=== PATIENT | female | born 1960 | race American Indian/Alaskan Native ===

== ENCOUNTER 2017-05-16 11:58 | Inpatient (IN) | payer MEDICAID, OTHER ==
[2017-05-16 14:46] LABS: Basophils % (Auto) 1.5 % (0.0-1.8); Eosinophils % (Auto) 1.6 % (0.0-4.3); Hematocrit 40.7 % (30.3-42.9); Hemoglobin 13.1 gm/dl (10.1-14.3); Mean Corpuscular HGB Conc 32 % (30-34); Mean Corpuscular Hemoglobin 29 pg (28-32); Mean Corpuscular Volume 92 fl (79-97); Platelet Count 180 K/mm3 (140-440); Red Blood Count 4.44 M/mm3 (3.65-5.03); Red Cell Distribution Width 14.9 % (13.2-15.2); White Blood Count 5.4 K/mm3 (4.5-11.0)
[2017-05-16 15:20] LABS: Anion Gap 17 mmol/L; Blood Urea Nitrogen 16 mg/dL (7-17); Calcium 9.5 mg/dL (8.4-10.2); Carbon Dioxide 28 mmol/L (22-30); Chloride 99.7 mmol/L (98-107); Glucose 110 mg/dL (65-100); Sodium 141 mmol/L (137-145)
--- NOTE | 2017-05-16 20:16 | Emergency Department Report ---
ED Chest Pain HPI - General Chief Complaint: Chest Pain Stated Complaint: DIZZINESS Time Seen by Provider: 05/16/17 20:03 Source: patient Mode of arrival: Ambulatory Limitations: No Limitations - History of Present Illness Initial Comments: 57-year-old female here with complaint of chest pain. Patient is noticing worsening pain over the course last couple weeks. She gets pain and short of breath. She describes the pain as a pressure inside her chest. It does not radiate. She does get diaphoretic with the pain and has to often sit down. She states that she syncopized at home with her family today. Denies fevers chills. She has had some nausea but no vomiting. MD Complaint: chest pain -: week(s) (1) Onset: during rest, during exertion Severity scale (0 -10): 4 Quality: tightness Consistency: intermittent Improves With: rest Worsens With: exertion re: nausea, diaphoresis, dyspnea Other Symptoms: denies: cough, fever, syncope - Related Data Previous Rx's Medication Instructions Recorded Last Taken Type Azithromycin [Zithromax Z-MARIANNE] 250 mg PO DAILY #6 tab 10/21/16 Unknown Rx Fluticasone [Flonase] 1 spray NS QDAY #1 bottle 10/21/16 Unknown Rx guaiFENesin/CODEINE [Robitussin AC] 10 ml PO QHS PRN #70 oral.liqd 10/21/16 Unknown Rx Allergies Allergy/AdvReac Type Severity Reaction Status Date / Time No Known Allergies Allergy Verified 10/21/16 13:19 Heart Score - HEART Score History: Highly suspicious EKG: Non-specific Age: 45-65 Risk factors: 1-2 risk factors Troponin: < normal limit HEART Score: 5 ED Review of Systems ROS: Stated complaint: DIZZINESS Other details as noted in HPI Comment: All other systems reviewed and negative Constitutional: denies: chills, fever Eyes: denies: eye pain, eye discharge, vision change ENT: denies: ear pain, throat pain Respiratory: denies: cough, shortness of breath, wheezing Cardiovascular: denies: chest pain, palpitations Endocrine: no symptoms reported Gastrointestinal: denies: abdominal pain, nausea, diarrhea Genitourinary: denies: urgency, dysuria, discharge Musculoskeletal: denies: back pain, joint swelling, arthralgia Skin: denies: rash, lesions Neurological: denies: headache, weakness, paresthesias Psychiatric: denies: anxiety, depression Hematological/Lymphatic: denies: easy bleeding, easy bruising ED Past Medical Hx - Past Medical History Hx Hypertension: Yes Hx Arthritis: Yes Additional medical history: hypothyroid - Surgical History Additional Surgical History: Tubal Ligation. THYROID SURGERY (FLUID REMOVED) - Family History Family history: no significant - Social History Smoking Status: Never Smoker Substance Use Type: None - Medications Home Medications: Home Medications Medication Instructions Recorded Confirmed Last Taken Type Azithromycin [Zithromax Z-MARIANNE] 250 mg PO DAILY #6 tab 10/21/16 Unknown Rx Fluticasone [Flonase] 1 spray NS QDAY #1 bottle 10/21/16 Unknown Rx guaiFENesin/CODEINE [Robitussin AC] 10 ml PO QHS PRN #70 oral.liqd 10/21/16 Unknown Rx ED Physical Exam - General Limitations: No Limitations General appearance: alert, in no apparent distress - Head Head exam: Present: atraumatic, normocephalic - Eye Eye exam: Present: normal appearance - ENT ENT exam: Present: mucous membranes moist - Neck Neck exam: Present: normal inspection - Respiratory Respiratory exam: Present: normal lung sounds bilaterally. Absent: respiratory distress - Cardiovascular Cardiovascular Exam: Present: regular rate, normal rhythm, systolic murmur. Absent: diastolic murmur, rubs, gallop - GI/Abdominal GI/Abdominal exam: Present: soft, normal bowel sounds. Absent: distended, tenderness, guarding - Extremities Exam Extremities exam: Present: normal inspection - Back Exam Back exam: Present: normal inspection - Neurological Exam Neurological exam: Present: alert, oriented X3 - Psychiatric Psychiatric exam: Present: normal affect, normal mood - Skin Skin exam: Present: warm, dry, intact, normal color. Absent: rash ED Course Vital Signs 05/16/17 05/16/17 05/16/17 13:30 20:55 20:56 Temperature 98.0 F 97.8 F Pulse Rate 73 68 Respiratory 18 18 18 Rate Blood Pressure 160/85 Blood Pressure 168/92 [Right] O2 Sat by Pulse 100 97 Oximetry ED Medical Decision Making - Lab Data Result diagrams: 05/16/17 14:31 05/16/17 14:31 Laboratory Results - last 24 hr 05/16/17 05/16/17 05/16/17 14:31 14:31 16:19 WBC 5.4 RBC 4.44 Hgb 13.1 Hct 40.7 MCV 92 MCH 29 MCHC 32 RDW 14.9 Plt Count 180 Lymph % (Auto) 32.8 [place] % (Auto) 10.0 H Eos % (Auto) 1.6 Baso % (Auto) 1.5 Lymph # 1.8 [place] # 0.5 Eos # 0.1 Baso # 0.1 Seg Neutrophils % 54.1 Seg Neutrophils # 2.9 Sodium 141 Potassium 4.0 Chloride 99.7 Carbon Dioxide 28 Anion Gap 17 BUN 16 Creatinine 0.8 Estimated GFR > 60 BUN/Creatinine Ratio 20.00 Glucose 110 H Calcium 9.5 Troponin T < 0.010 < 0.010 - EKG Data -: EKG Interpreted by Me - EKG Data 05/16/17 20:21 Sinus 68 normal axis and prolonged QTC of 474 diffuse T-wave inversions in leads 2 and aVF and V3 V4 V5 and V6 - Medical Decision Making 37-year-old female here with complaint of chest pain intermittent with exertion. It is worse with exertion and she gets short of breath with it. Given her story and her abnormal EKG, although her troponins are negative she will need to be evaluated further with likely a stress test and possibly an echo given her murmur. Plan did discuss case with hospitalist will admit. Discussed with hospitalist. Portions of this chart were dictated with dictation software. There may be dictation errors contained within this note. Critical care attestation.: If time is entered above; I have spent that time in minutes in the direct care of this critically ill patient, excluding procedure time. ED Disposition Clinical Impression: Chest pain Disposition: -09 OP ADMIT IP TO THIS HOSP Is pt being admited?: Yes Condition: Stable Instructions: Chest Pain (ED) Referrals: PRIMARY CARE, [Primary Care Provider] - 3-5 Days
--- NOTE | 2017-05-16 22:58 | History and Physical Report ---
History of Present Illness Date of examination: 05/16/17 Medications and Allergies Allergies Allergy/AdvReac Type Severity Reaction Status Date / Time No Known Allergies Allergy Verified 10/21/16 13:19 Home Medications Medication Instructions Recorded Confirmed Last Taken Type No Known Home Medications [No 05/16/17 05/16/17 Unknown History Reported Home Medications] Exam - Constitutional Vitals: Temp Pulse Resp BP Pulse Ox 97.8 F 65 25 H 154/82 99 05/16/17 20:55 05/16/17 21:00 05/16/17 21:00 05/16/17 21:00 05/16/17 21:00 Results - Labs CBC & Chem 7: 05/16/17 14:31 05/16/17 14:31 Labs: Abnormal lab results 05/16/17 05/16/17 Range/Units 14:31 14:31 [place] % (Auto) 10.0 H (0.0-7.3) % Glucose 110 H (65-100) mg/dL
[2017-05-17] MEDS ORDERED: SODIUM CHLORIDE FLUSH SYRINGE 10 ML IV PRN (01:13)
[2017-05-17] MEDS ORDERED: PERCOCET 5/325 PO PRN (01:13)
[2017-05-17] MEDS ORDERED: TYLENOL PO PRN (01:13)
[2017-05-17] MEDS ORDERED: MILK OF MAGNESIA PO PRN (01:13)
[2017-05-17] MEDS ORDERED: DULCOLAX PR PRN (01:13)
[2017-05-17] MEDS ORDERED: ZOFRAN IV PRN (01:13)
--- NOTE | 2017-05-17 08:26 | XRay Report ---
CHEST ONE VIEW INDICATION: Chest pain. COMPARISON: 12/12/2009. FINDINGS: Portable, single, frontal chest radiograph now suggests borderline cardiomegaly, slightly more pronounced since the prior exam. Mild peribronchial thickening centrally also now seen. Otherwise clear lungs. Multilevel thoracic spondylosis. Right hemidiaphragm minimally elevated. CONCLUSION: Mild peribronchial thickening and borderline cardiomegaly. Thank you for the opportunity to participate in this patient's care.
--- NOTE | 2017-05-17 08:28 | Admit Criteria Form ---
Admission Criteria Documentation: CARDIOLOGY GRG Clinical Indications for Admission to Inpatient Care ([place]/check or initial the applicable condition/criteria) Hospital admission is needed for appropriate care of the patient because of ANY ONE of the following: [ ] I. Hemodynamic instability as indicated by ALL of the following (1)(2)(3) (4)(5)(6)(7)(8)(9)(10) [ ]a) Vital sign abnormality not readily corrected by appropriate treatment with 12-24 hours for ANY ONE: [ ]i) Hypotension that persists despite appropriate treatment (eg, volume repletion) [ ]ii) Tachycardiathat persists despite appropriate tx ( e.g., analgesia, fluids, sedation as indicated [ ]iii) Orthostatic vital sign changes that persists despite appropriate treatment (eg, volume repletion) [ ]b) Vital sign abnormailty that is severe indicated by ANY ONE of the following: [ ]i) Inadequate perfusion indicated by ANY ONE of the following: [ ] 1) Lactic acidosis (> 2 mmol/L) [ ] 2) New abnormal capillary refill (> 3 seconds) [ ] 3) Reduced urine output [ ] 4) New altered mental status [ ] 5) Myocardial Ischemia [ ] 6) Other metabolic acidosis (arterial pH <7.35 ) not otherwise explained. [ ]ii) Mean arterial pressure[A] less than 60 mm Hg [ ]iii) Mean arterial pressure[A] less than 70 mm Hg after 30 minutes of appropriate treatment (eg, fluid resuscitation) [ ]iv) Sustained heart rate greater than 120 beats per minute in adult or child 6 years or older[B] [ ]v) IV inotropic or vasopressor medication required to maintain adequate blood pressure or perfusion [ ] II. Severe heart failure as indicated by ANY ONE of the following(17)(18) [ ]a) Respiratory distress [ ]b) Hypotension [ ]c) Debilitating anasarca refractory to therapy (eg, tissue breakdown with infection)[C](19) [ ]d) Cardiac arrhythmias of immediate concern [ ]e) Myocardial ischemia [ ] III. Cardiac arrhythmias or findings of immediate concern indicated by ANY ONE of the following (21)(22): [ ] a) Heart rhythms that are inherently dangerous or unstable indicated by ANY ONE of the following (23)(24)(25): [ ] i) Resuscitated ventricular fibrillation or cardiac arrest [ ] ii) Ventricular escape rhythm [ ] iii) Sustained ventricular tachycardia (30 seconds or more of ventricular rhythm at greater than 100 beats per minute) [ ] iv) Nonsustained ventricular tachycardia and ANY ONE of the following: [ ] 1) Suspected cardiac ischemia as cause or consequence of ventricular tachycardia [ ] 2) Acute myocarditis [ ] b) Unstable cardiac conduction defects indicated by ANY ONE of the following(25)(26)(27) [ ] i) Type II second-degree atrioventricular block [ ]ii) Third-degree atrioventricular block [ ]iii) New-onset left bundle branch block with suspected myocardial ischemia [ ]c) Any heart rhythm and ANY ONE of the following (23)(24)(28)(29) (30) [ ] i) Continuous long-term ECG monitoring needed (e.g., initiation of drug requiring monitoring for more than 24 hours) [ ] ii) Patient has automatic implanted cardioverter defibrillator that is repeatedly firing, malfunctioning, or in need of immediate adjustment of settings beyond the scope of ambulatory or observation care [ ]d) Heart rhythms of concern due to ANY ONE of the following: [ ] i) Hypotension [ ] ii) Respiratory distress [ ] iii) Association with other significant symptoms (e.g., bradycardia with syncope or ongoing dizziness, supraventricular tachycardia with chest pain (28)(29)(31) [ ] IV. Monitoring for cardiac contusion beyond the scope of observation care needed [A](32)(33)(34) [ ] V. Surgical or device complication (e.g., valve replacement complication , ICD disfunction or pacemaker dysfunction) (49)(50)(51)(52)(53)(54) [ ] . Inpatient palliative care needed. [F](51)(52) Also use Inpatient Palliative Care Criteria [ ] VII. Nonbacterial thrombotic (marantic) endocarditis(43)(44)(55)(56)(57) [X] VIII. Cardiology condition, symptom, or finding for which emergency and observation care has failed or are not considered appropriate. [ ] IX. Acute valvular disease requiring inpatient as indicated by ANY ONE of the following (40)(41) [ ]a) Acute valvular regurgitation (42) [ ]b) Noninfectious valvulitis (43)(44) [ ]c) Obstructive valve thrombosis (45)(46) [ ]d) Paravalvular leak(47)(48) [ ]e) Other significant valvular disorder remaining after emergency or observation level of care (as appropriate) [ ]X. Pericardial disease requiring inpatient treatment as indicated by ANY ONE of the following (35)(36)(37)(38) [ ]a) Suspected tamponade [ ]b) Hemopericardium [ ]c) Other significant pericardial disorder remaining after emergency or observation level of care (as appropriate)(39) [ ] XI. Cardiac ischemia beyond scope of emergency and observation care. [ ] XII. Cyanotic heart disease requiring inpatient care as indicated by 1 or more of the following(58)(59)(60): [ ]a) Acute onset of hypoxemia [ ]b) Exacerbation [ ] XIII. Hypertension requiring inpatient treatment as indicated by ANYONE of the following(11)(12)(13)(14): [ ]a) Severe hypertension (SBP greater than 180 mm Hg or DBP greater than 110 mm Hg, or greater than the 95th percentile for age, gender, and height in pediatric patients) that cannot be controlled (eg, to SBP less than 160 mm Hg and DBP less than 100 mm Hg) by emergency department or observation care treatment(15) [ ]b) Acute end organ damage secondary to hypertension (SBP greater than 140 mm Hg or DBP greater than 90 mm Hg) as indicated by ANYONE of the following: [ ] i) Hypertensive encephalopathy (eg, Altered mental status)(16) [ ] ii) Cerebral infarction [ ] iii) Intracranial hemorrhage [ ] iv) Myocardial ischemia or infarction [ ] v) Heart failure (eg, pulmonary edema) [ ] vi) Aortic dissection [ ] vii) Increased creatinine (new) with reduction of more than 50% in estimated glomerular filtration rate from baseline [ ] viii) Papilledema [ ] ix) Retinal hemorrhage [ ] x) Microangiopathic hemolytic anemia [ ] xi) Seizure [ ] xii) Other significant finding secondary to hypertension [ ] XIV. Complications of transplanted heart indicated by ANY ONE of the following(61): [ ]a) Acute graft rejection requiring inpatient management (eg, intravenous imunosuppression)(62)(63) [ ]b) Acute graft heart failure indicated by ANY ONE of the following(64): [ ] i) Hemodynamic instability [ ] ii) Cardiac arrhythmias of immediate concern [ ] iii) Pulmonary edema that is very severe (eg, mechanical ventilation needed, imminent or likely, need for 100% oxygen to keep oxygen saturation above 90%) [ ] iv) Pulmonary edema that is persistent as indicated by ALL of the following: [ ] 1) New need for oxygen therapy to keep oxygen saturation above 90 % (or increased FiO2 need from baseline) [ ] 2) Has not improved sufficiently with emergency department or observation care IV diuretics or other heart failure treatments[E]. [ ] iv) Altered mental status that is severe or persistent [ ] iv) Increased creatinine (new on laboratory test) with reduction of more than 50% in estimated glomerular filtration rate from baseline [ ] iv) Progressively (ongoing) rising creatinine (known from past laboratory test) with reduction of more than 25% in estimated glomerular filtration rate from baseline [ ] iv) Acute renal failure [ ] iv) Acute peripheral ischemia (eg, examination shows pulseless, cool, mottled, or cyanotic extremity) [ ] iv) Pulmonary artery catheter monitoring needed [ ] iv) Other sign or symptom of heart failure requiring inpatient treatment (ie, too severe or not responsive to outpatient and observation care treatment) [ ]c) Infection requiring inpatient management (eg, Hemodynamic instability, need for intravenous antimicrobial treatment)(66)(67)(68)(69)(70) [ ]d) Cardiac allograft vasculopathy requiring inpatient management (eg evidence of cardiacischemia)(71) [ ]e) Other complication of transplanted heart (eg, stroke, severe pulmonary hypertension, severe valvular dysfunction) requiring inpatient management(72) The original [employer] content created by [employer] has been revised. The portions of the content which have been revised are identified through the use of italic text or in bold, and [facility] has neither reviewed nor approved the modified material. All other unmodified content is copyright [facility] Please see references footnoted in the original [facility] edition 2017 Admission Criteria Met: Yes
[2017-05-17] MEDS ORDERED: LEXISCAN IV ONE ×2 (08:50→08:51)
[2017-05-17 09:46] VITALS: BP 128/69
[2017-05-17] MEDS ORDERED: LOVENOX SUB-Q SCH (10:00)
--- NOTE | 2017-05-17 13:45 | Discharge Summary ---
Providers - Providers Date of Admission: 05/16/17 22:58 Date of discharge: 05/17/17 Attending physician: CECY CLIFTON 05/17/17 Consult to Cardiac Rehabilitation [CONS] Routine Reason For Exam: Phase I Primary care physician: [facility] [facility]IST Hospitalization Reason for admission: chest pain Condition: Stable Pertinent studies: CXR Stress test Hospital course: Chest pain - likely secondary to GERD ? HTN - not on any medication and BP within normal limits S/p thyroid surgery Obesity Disposition: DC-01 TO HOME OR SELFCARE Time spent for discharge: 35 min Core Measure Documentation - Palliative Care Palliative Care/ Comfort Measures: Not Applicable - Core Measures Any of the following diagnoses?: none Exam - Constitutional Vitals: Temp Pulse Resp BP Pulse Ox 98.1 F 90 30 H 128/69 96 05/16/17 23:59 05/17/17 09:15 05/17/17 05:00 05/17/17 09:15 05/17/17 05:00 Plan Activity: advance as tolerated Diet: low cholesterol, low salt Follow up with: [facility] [Outside] - 14 Days PRIMARY CAREMD [Primary Care Provider] - 3-5 Days YOSVANY DA SILVA MD [Staff Physician] - 14 Days (? ECHO (cardiomegaly)) Prescriptions: Antacid [Alum-Mag Hydrox-Simeth [id number]/5Ml Susp] 15 ml PO Q6HR PRN #30 udc PRN Reason: Indigestion Famotidine [Pepcid] 20 mg PO BID #60 tablet
--- NOTE | 2017-05-18 01:19 | Treadmill Report ---
PROCEDURE: Nuclear perfusion study done. REASON FOR STUDY: Chest pain. READING PHYSICIAN: Doc Wilkes MD IMAGING PROTOCOL: The patient received 10 mCi of Technetium 99m Tetrofosmin for resting image and 28 mCi of Technetium 99m Tetrofosmin for stress imaging. The imaging for the whole procedure was completed 30-90 minutes following the initial injection of Technetium 99m tetrofosmin. The SPECT imaging in the 180 degree arc was performed in the right anterior oblique projection. Computerized reconstruction of the images was performed for analysis. IMAGING RESULTS: Normal cavity size from stress to rest. Normal distribution of radionuclide in the septal, apical, lateral, inferior and anterior, but mild fixed mid anterior apical defect seen in both stress and rest with gated SPECT, EF of 50% with no wall motion abnormalities. The patient infused, Lexiscan with no EKG changes. SUMMARY: 1. Negative Lexiscan EKG. 2. The patient has no significant stress ischemia. 3. There is a small mild fixed anterior apical defects seen both stress and rest to breast attenuation with EF around 50%, no wall motion abnormality noted. JOB# [id number] TERRY/FRANCESCO
== END 2017-05-17 14:15 | disposition home or self-care (01) | DRG 392 ==
LOC: ED 11:58 → 4A 22:58
PROVIDERS: ADMIT Internal Medicine; ATTEND Internal Medicine
DX: K21.9 Gastro-esophageal reflux disease without esophagitis (principal); I10 Essential (primary) hypertension; M19.90 Unspecified osteoarthritis, unspecified site; E66.9 Obesity, unspecified; Z68.37 Body mass index [BMI] 37.0-37.9, adult; Z98.51 Tubal ligation status
CPT/HCPCS: 36415; 71010; 78452; 80048; 84443; 84484; 85025; 85379; 93005; 93010; 93017; A9502; J1650; J2785

== ENCOUNTER 2017-12-09 05:37 | Emergency (ER) | payer MEDICARE ==
--- NOTE | 2017-12-09 06:33 | XRay Report ---
FINAL REPORT EXAM: XR NECK SOFT TISSUE HISTORY: pt believes something is stuck in throat COMPARISONS: None. FINDINGS: AP and lateral views of the neck Tracheal air column is within normal limits. No hypo pharyngeal ballooning. Prevertebral soft tissues are within normal limits. Intact cervical spine with scattered endplate spondylosis. Incomplete evaluation of the lungs is unremarkable. IMPRESSION: No obvious abnormality involving upper airway or soft tissues of the neck. Consider follow-up CT with contrast as warranted.
--- NOTE | 2017-12-09 09:53 | Emergency Department Report ---
ED General Adult HPI - General Chief complaint: Skin/Abscess/Foreign Body Stated complaint: FB THROAT Time Seen by Provider: 12/09/17 09:43 Source: patient Mode of arrival: Ambulatory Limitations: No Limitations - History of Present Illness Initial comments: This is a 57-year-old female has intermittently felt like she had a foreign body in the right side of her throat. At this time it is not bothering her. She states it felt like a piece of popcorn. She has no trouble breathing and has been swallowing fine. He denies fever or chills. -: days(s) Location: mouth Quality: other Associated Symptoms: denies other symptoms (foreign body sensation) - Related Data Previous Rx's Medication Instructions Recorded Last Taken Type Antacid [Alum-Mag Hydrox-Simeth 15 ml PO Q6HR PRN #30 udc 05/17/17 Unknown Rx [id number]/5Ml Susp] Famotidine [Pepcid] 20 mg PO BID #60 tablet 05/17/17 Unknown Rx Allergies Allergy/AdvReac Type Severity Reaction Status Date / Time No Known Allergies Allergy Verified 10/21/16 13:19 ED Review of Systems ROS: Stated complaint: FB THROAT Other details as noted in HPI Constitutional: denies: chills, fever Eyes: denies: eye pain, eye discharge, vision change ENT: denies: ear pain, throat pain Respiratory: denies: cough, shortness of breath, wheezing Cardiovascular: denies: chest pain, palpitations Endocrine: no symptoms reported Gastrointestinal: denies: abdominal pain, nausea, diarrhea Genitourinary: denies: urgency, dysuria, discharge Musculoskeletal: denies: back pain, joint swelling, arthralgia Skin: denies: rash, lesions Neurological: denies: headache, weakness, paresthesias Psychiatric: denies: anxiety, depression Hematological/Lymphatic: denies: easy bleeding, easy bruising ED Past Medical Hx - Past Medical History Previous Medical History?: Yes Hx Hypertension: Yes Hx Congestive Heart Failure: No Hx Diabetes: No Hx Arthritis: Yes (B/L knees) Hx Asthma: No Hx COPD: No Hx HIV: No Additional medical history: hypothyroid - Surgical History Past Surgical History?: Yes Additional Surgical History: Tubal Ligation. THYROID SURGERY (FLUID REMOVED) - Social History Smoking Status: Former Smoker Substance Use Type: None - Medications Home Medications: Home Medications Medication Instructions Recorded Confirmed Last Taken Type Antacid [Alum-Mag Hydrox-Simeth 15 ml PO Q6HR PRN #30 udc 05/17/17 Unknown Rx [id number]/5Ml Susp] Famotidine [Pepcid] 20 mg PO BID #60 tablet 05/17/17 Unknown Rx ED Physical Exam - General Limitations: No Limitations General appearance: alert, in no apparent distress - Head Head exam: Present: atraumatic, normocephalic - Eye Eye exam: Present: normal appearance - ENT ENT exam: Present: normal orophraynx, mucous membranes moist - Neck Neck exam: Present: normal inspection, full ROM. Absent: tenderness, meningismus, lymphadenopathy, thyromegaly - Respiratory Respiratory exam: Present: normal lung sounds bilaterally. Absent: respiratory distress - Cardiovascular Cardiovascular Exam: Present: regular rate, normal rhythm. Absent: systolic murmur, diastolic murmur, rubs, gallop - GI/Abdominal GI/Abdominal exam: Present: soft, normal bowel sounds. Absent: distended, tenderness, guarding, rebound, rigid - Extremities Exam Extremities exam: Present: normal inspection - Back Exam Back exam: Present: normal inspection - Neurological Exam Neurological exam: Present: alert, oriented X3, CN II-XII intact. Absent: motor sensory deficit - Psychiatric Psychiatric exam: Present: normal affect, normal mood - Skin Skin exam: Present: warm, dry, intact, normal color. Absent: rash ED Course Vital Signs 12/09/17 12/09/17 05:53 08:55 Temperature 97.7 F Pulse Rate 62 61 Respiratory 18 18 Rate Blood Pressure 146/86 Blood Pressure 149/80 [Left] O2 Sat by Pulse 91 100 Oximetry - Reevaluation(s) Reevaluation #1: Patient referred to ENT for follow-up. She was told that laryngoscopy may be recommended. 12/09/17 09:52 Critical care attestation.: If time is entered above; I have spent that time in minutes in the direct care of this critically ill patient, excluding procedure time. ED Disposition Clinical Impression: Foreign body sensation in throat Disposition: DC-01 TO HOME OR SELFCARE Is pt being admited?: No Does the pt Need Aspirin: No Condition: Stable Instructions: Foreign Body in Pharynx (ED) Referrals: LUCAS KC MD [Staff Physician] - 2-3 Days Time of Disposition: 09:53
[2017-12-09] MEDS ORDERED: LIDOCAINE VISCOUS 2% PO ONE (09:54)
[2017-12-09] MEDS ORDERED: ALUM-MAG HYDROX-SIMETH 200-200-20MG/5ML PO ONE (09:54)
[2017-12-09 10:08] VITALS: BP 166/81
== END 2017-12-09 10:07 | disposition home or self-care (01) ==
LOC: ED 05:37
DX: T17.208A Unspecified foreign body in pharynx causing other injury, initial encounter (principal); I10 Essential (primary) hypertension; M19.90 Unspecified osteoarthritis, unspecified site; Z87.891 Personal history of nicotine dependence; X58.XXXA Exposure to other specified factors, initial encounter; Y93.89 Activity, other specified; Y92.89 Other specified places as the place of occurrence of the external cause; Y99.8 Other external cause status
CPT/HCPCS: 70360; 99283

== ENCOUNTER 2018-01-30 04:22 | Emergency (ER) | payer MEDICARE ==
[2018-01-30 04:30] VITALS: BP 154/92
--- NOTE | 2018-01-30 06:13 | Emergency Department Report ---
Chief Complaint: Urogenital-Female Stated Complaint: SWEATING Time Seen by Provider: 01/30/18 06:09 - HPI History of Present Illness: 58-year-old female comes in with complaint of constant sweating and hot flashes 1 year. Patient denies any fever no chills no nausea no vomiting. She states that she had tried [id number] estrogen that have helped with the night sweats but not doing the day. Patient has no other past medical history besides knee pain. Patient currently takes no medications and has no known drug allergies. - ROS Review of Systems: Patient admits to night sweats hot flashes during the day no fever no chills and nausea no vomiting she's had a tubal ligation - Exam Vital Signs: Vital Signs 01/30/18 01/30/18 04:24 05:27 Temperature 97.6 F 97.6 F Pulse Rate 70 71 Respiratory 18 18 Rate Blood Pressure 154/92 154/92 O2 Sat by Pulse 98 98 Oximetry Physical Exam: Patient's alert and oriented 3 she is no acute distress she is warm dry. MSE screening note: Focused history and physical exam performed. Due to findings the following was ordered: Patient's been evaluated by this provider fast track discussed the patient is considered a nonemergency screening exam. Discussed the patient she would best be evaluated by [facility] provider or primary care provider. I discussed the patient I will list few for her to follow up. She verbalizes understanding ED Disposition for MSE Condition: Stable Referrals: [facility] [Provider Group] - 3-5 Days [facility] [place] [Provider Group] - 3-5 Days [facility] [Provider Group] - 3-5 Days [facility] [Provider Group] - 3-5 Days
== END 2018-01-30 06:14 | disposition home or self-care (01) ==
LOC: ED 04:22
DX: R61 Generalized hyperhidrosis (principal)
CPT/HCPCS: 99281

== ENCOUNTER 2018-05-31 08:52 | Emergency (ER) | payer MEDICAID ==
--- NOTE | 2018-05-31 09:58 | Emergency Department Report ---
Chief Complaint: Extremity Injury, Lower Stated Complaint: KNEE PAIN Time Seen by Provider: 05/31/18 09:19 - HPI History of Present Illness: Patient is a 58-year-old [place] female who has a past history of arthritis in her bilateral knees S3 use. Patient states she is been out of her arthritis Ms. Ferrer prescribed andfacility. Patient is here for medication control. Patient states she went to assess at medical clinic but was unable to afford the co-pay. Patient denies any trauma states the pain is 8 out of 10 in severity. Patient states that she has not had a fever nausea vomiting diarrhea at this time. - ROS Review of Systems: All other systems are reviewed and are negative - Exam Vital Signs: Vital Signs 05/31/18 09:06 Temperature 97.7 F Pulse Rate 69 Respiratory 18 Rate Blood Pressure 153/56 O2 Sat by Pulse 96 Oximetry Physical Exam: Focused physical exam patient has bilateral knee tenderness with no swelling or induration. Patient does have full range of motion in bilateral knees MSE screening note: Focused history and physical exam performed. Due to findings the following was ordered: ED Medical Decision Making - Medical Decision Making Patient is a now medical emergency at this time. I did discuss the patient's options with her. Patient does not have Medicaid part B does not have coverage for emergency visits. I was concerned the patient will receive substantial bill if treated here in emergency department. Patient has been screened out for having a medical emergency. Patient was given advice to take Motrin 800 mg every 6 hours [id number]. Patient also given advice as far as rice therapy. Patient will be discharged home. ED Disposition for MSE Clinical Impression: Arthralgia of knee Disposition: MED SCREENING EXAM-LEFT Is pt being admited?: No Does the pt Need Aspirin: No Condition: Stable Instructions: Arthralgia (ED), RICE Therapy (ED) Additional Instructions: Please take Motrin 600 mg [id number] every 6 hours for pain and inflammation. Also please see instructions on rice therapy Time of Disposition: 09:58
[2018-05-31 10:10] VITALS: BP 128/77
== END 2018-05-31 10:08 | disposition left against medical advice (07) ==
LOC: ED 08:52
DX: M25.561 Pain in right knee (principal); M25.562 Pain in left knee
CPT/HCPCS: 99282

== ENCOUNTER 2018-08-25 21:37 | Emergency (ER) | payer MEDICAID ==
--- NOTE | 2018-08-25 21:55 | Cat Scan Report ---
FINAL REPORT EXAM: CT HEAD/BRAIN WO CON HISTORY: neuro deficits < 6hrs or sx present upon awakening COMPARISON: None available. TECHNIQUE: Axial images obtained skull base through vertex. FINDINGS: No acute intracranial hemorrhage, midline shift or pathologic extra axial fluid collection. Ventricle s and cisterns are normal in size and configuration for the patient's age. Ashraf-white differentiation preserved. Calvarium grossly intact. Ocular globes are grossly unremarkable. No hyperdense MCA sign. No loss of the subinsular cortex. Remote appearing bilateral nasal bone fractures. Visualized para-nasal sinuses and mastoid air cells are clear. IMPRESSION: No grossly acute intracranial abnormality. No evidence of acute transcortical infarct or intracranial hemorrhage by CT at this time. If clinical concern for acute intracranial process remains, MRI would be suggested for further evaluation.
--- NOTE | 2018-08-25 22:05 | Emergency Department Report ---
HPI - General Chief Complaint: Neuro Symptoms/Deficit Time Seen by Provider: 08/25/18 21:55 - HPI HPI: Room 1 The patient is a 58-year-old female presenting with a chief complaint of left- sided weakness. Per EMS at approximately 20:30 the patient developed drooling and choking on her food, slurred speech and left-sided weakness. The patient states she got overheated and felt lightheaded. Location: [facility] Duration: [See above] Quality: [See above] Severity: [See above] Modifying factors: [see above] Context: [see above] Mode of transportation: [not driving] ED Past Medical Hx - Past Medical History Hx Hypertension: Yes (not on any meds) Hx Arthritis: Yes (B/L knees) Additional medical history: hypothyroid - Surgical History Additional Surgical History: Tubal Ligation. THYROID SURGERY (FLUID REMOVED) - Family History Family history: no significant - Social History Smoking Status: Never Smoker Substance Use Type: None - Medications Home Medications: Home Medications Medication Instructions Recorded Confirmed Last Taken Type Antacid [Alum-Mag Hydrox-Simeth 15 ml PO Q6HR PRN #30 udc 05/17/17 Unknown Rx [id number]/[id number] Susp] Famotidine [Pepcid] 20 mg PO BID #60 tablet 05/17/17 Unknown Rx Carbamide Peroxide 6.5% [Ear Wax 1 - 2 drops OT TID #1 bottle 08/24/18 Unknown Rx Drops] Naproxen [Naprosyn] 500 mg PO BID #20 tablet 08/24/18 Unknown Rx ED Review of Systems ROS: Stated complaint: POSS CVA Other details as noted in HPI Constitutional: no symptoms reported Eyes: denies: eye pain ENT: denies: throat pain Respiratory: no symptoms reported Cardiovascular: denies: chest pain Endocrine: no symptoms reported Gastrointestinal: denies: abdominal pain Musculoskeletal: denies: back pain Neurological: weakness Physical Exam - Physical Exam Vital Signs: Vital Signs 08/25/18 21:51 Temperature 97.7 F Pulse Rate 69 Respiratory 33 H Rate Blood Pressure 125/86 O2 Sat by Pulse 98 Oximetry Physical Exam: GENERAL: The patient is well-developed well-nourished female lying on stretcher with rightward gaze. [] HEENT: Normocephalic. Atraumatic. The patient has a rightward gaze NECK: Supple. Trachea midline CHEST/LUNGS: Clear to auscultation. There is no respiratory distress noted. HEART/CARDIOVASCULAR: Regular. There is no tachycardia. There is no gallop rub or murmur. ABDOMEN: Abdomen is soft, nontender. Patient has normal bowel sounds. There is no abdominal distention. SKIN: There is no rash. There is no edema. There is no diaphoresis. NEURO: The patient is awake, alert, and oriented. The patient is cooperative. The patient has a dense left hemiparesis with left-sided neglect. The patient has left facial droop/asymmetric smile and does not look towards the left during EOM evaluation. The patient has slightly slurred speech. MUSCULOSKELETAL: There is no evidence of acute injury. NIHSS= 17 LOC a. Alert= 0 Not alert but arousable to minor stimuli=1 Not alert requires repeated or strong stimuli to move= 2 Responds only reflex motor or unresponsive=3 b. asks month and age answers both correctly= 0 answers one correctly= 1 answers neither correctly= 2 Best Gaze normal= 0 abnormal in one or both but forced deviation or total paresis absent= 1 (+)forced deviation or total gaze paresis= 2 Visual no visual loss= 0 partial hemianopia= 1 complete hemianopia= 2 bilateral hemianopia= 3 Facial Palsy normal= 0 minor paralysis= 1 (+)partial paralysis= 2 complete paralysis= 3 Motor Arm no drift= 0 drift before 10 secs but doesnt hit bed= 1 some effort against gravity= 2 no effort against gravity= 3 (+)no movement= 4 Motor leg no drift= 0 drift before 5 secs but doesnt hit bed= 1 drifts to bed before 5 secs= 2 no effort against gravity= 3 (+)no movement= 4 Limb ataxia absent=0 present in one limb= 1 present in two limbs= 2 Sensory normal= 0 mild sensory loss= 1 (+)severe (unaware of being touched)= 2 Best language mild/some loss of fluency= 1 severe= 2 mute= 3 Dysarthria normal= 0 (+)slurs some words= 1 severe/unintelligible= 2 Extinction and Inattention no abnormality= 0 visual, tactile, auditory or personal inattention= 1 (+)profound (doesnt recognize own hand or orients to only one side= 2 ED Course Vital Signs 08/25/18 21:51 Temperature 97.7 F Pulse Rate 69 Respiratory 33 H Rate Blood Pressure 125/86 O2 Sat by Pulse 98 Oximetry - Reevaluation(s) Reevaluation #1: 08/25/18 23:57 Patient has improved on exam. Patient now able to bend left lower extremity at knee and hip. Patient able to raise left upper extremity above his head but the left aircraft mechanic electrical and radio is 0+/5+. Patient continues to have a rightward gaze. - Consultations Consultation #1: 08/25/18 22:01 Tele-neurology paged 08/25/18 22:[address] Bishop- will eval 08/25/18 22:28 Case d/w Dr Bishop- recommends administering tPA now Consultation #2: 08/25/18 23:52 Telemetry neurology paged 08/25/18 23:[address] Clay- patient should be transferred to [place]. Will call and discuss with team and [place] to arrange acceptance. Consultation #3: 08/26/18 00:27 Case discussed with [facility] neurologist Dr. Rios- full except patient in transfer to [facility] ED- recommends transportation by flight. Can begin to arrange transport now and transfer line will call back ED Medical Decision Making - Lab Data Result diagrams: 08/25/18 21:57 08/25/18 21:57 Laboratory Tests 08/25/18 08/25/18 08/25/18 21:57 21:57 21:57 WBC 6.9 RBC 3.92 Hgb 11.7 Hct 36.3 MCV 93 MCH 30 MCHC 32 RDW 15.9 H Plt Count 224 Lymph % (Auto) 29.9 Mcintosh % (Auto) 10.2 H Eos % (Auto) 1.0 Baso % (Auto) 0.6 Lymph # 2.1 Mcintosh # 0.7 Eos # 0.1 Baso # 0.0 Seg Neutrophils % 58.3 Seg Neutrophils # 4.0 PT 14.3 INR 1.07 APTT 24.3 Thrombin Time Sodium 142 Potassium 3.9 Chloride 103.6 Carbon Dioxide 25 Anion Gap 17 BUN 22 H Creatinine 1.1 Estimated GFR > 60 BUN/Creatinine Ratio 20 Glucose 130 H Calcium 8.7 Troponin T < 0.010 08/25/18 21:57 WBC RBC Hgb Hct MCV MCH MCHC RDW Plt Count Lymph % (Auto) Mcintosh % (Auto) Eos % (Auto) Baso % (Auto) Lymph # Mcintosh # Eos # Baso # Seg Neutrophils % Seg Neutrophils # PT INR APTT Thrombin Time 15.1 Sodium Potassium Chloride Carbon Dioxide Anion Gap BUN Creatinine Estimated GFR BUN/Creatinine Ratio Glucose Calcium Troponin T - EKG Data -: EKG Interpreted by Me EKG shows normal: sinus rhythm Rate: normal - EKG Data When compared to previous EKG there are: previous EKG unavailable Interpretation: nonspecific ST-T wave fabi (T-wave inversions in leads V5, V6) - Radiology Data Radiology results: report reviewed (CT head, CTA brain, CTA neck), image reviewed (CT head, CTA brain, CTA neck) [facility] [address] [place] [address] Cat Scan Report Signed Patient: JUANY GUY MR#: [id number] : 1960 Acct:[id number] Age/Sex: 58 / F ADM Date: 08/25/18 Loc: ED Attending Dr: Ordering Physician: SHAYLA NARAYANAN MD Date of Service: 08/25/18 Procedure(s): CT head/brain wo con Accession Number(s): [id number] cc: SHAYLA NARAYANAN MD FINAL REPORT EXAM: CT HEAD/BRAIN WO CON HISTORY: neuro deficits lt; 6hrs or sx present upon awakening COMPARISON: None available. TECHNIQUE: Axial images obtained skull base through vertex. FINDINGS: No acute intracranial hemorrhage, midline shift or pathologic extra axial fluid collection. Ventricles and cisterns are normal in size and configuration for the patient's age. Ashraf-white differentiation preserved. Calvarium grossly intact. Ocular globes are grossly unremarkable. No hyperdense MCA sign. No loss of the subinsular cortex. Remote appearing bilateral nasal bone fractures. Visualized para-nasal sinuses and mastoid air cells are clear. IMPRESSION: No grossly acute intracranial abnormality. No evidence of acute transcortical infarct or intracranial hemorrhage by CT at this time. If clinical concern for acute intracranial process remains, MRI would be suggested for further evaluation. Transcribed By: LMA Dictated By: MARLENE GILLIS MD Electronically Authenticated By: MARLENE GILLIS MD Signed Date/Time: 08/25/182154 DD/ 56 TD/TT: 08/25/182156 [address] [address] Cat Scan Report Signed Patient: JUANY GUY MR#: [id number] : 1960 Acct:[id number] Age/Sex: 58 / F ADM Date: 08/25/18 Loc: ED Attending Dr: Ordering Physician: SHAYLA NARAYANAN MD Date of Service: 08/25/18 Procedure(s): CT angio neck Accession Number(s): [id number] cc: SHAYLA NARAYANAN MD FINAL REPORT EXAM: CT ANGIO NECK HISTORY: left hemiparesis, left-sided neglect COMPARISON: None available. TECHNIQUE: Contiguous axial images were obtained. Additional sagittal and coronal reformatted images were obtained. Administration of IV contrast given per institution protocol. Images submitted for interpretation. Max intensity projection images. FINDINGS: There occlusion right internal carotid artery at the bifurcation. Extracranial portions of the bilateral common carotid arteries are widely patent. Left carotid bifurcation is widely patent. Ext racranial portion left internal carotid artery is widely patent as well as the vertebral arteries. Right vertebral artery is slightly dominant. Conventional arch anatomy with separate origins of the innominate left common carotid arteries. Septal thickening at the lung apices and partial visualization of bilateral pleural effusions concerning for mild CHF. Spaces of the neck are preserved. Upper airway is patent. IMPRESSION: Occlusion right internal carotid artery at its origin. No calcified plaque in this region. This appears relate to acute thrombus. Dissection is not excluded. Transcribed By: LMA Dictated By: MARLENE GILLIS MD Electronically Authenticated By: MARLENE GILLIS MD Signed Date/Time: 08/25/182339 DD/ 42 TD/TT: 08/25/182342 [address] [address] Cat Scan Report Signed Patient: JUANY GUY MR#: [id number] : 1960 Acct:[id number] Age/Sex: 58 / F ADM Date: 08/25/18 Loc: ED Attending Dr: Ordering Physician: SHAYLA NARAYANAN MD Date of Service: 08/25/18 Procedure(s): CT angio head Accession Number(s): [id number] cc: SHAYLA NARAYANAN MD FINAL REPORT EXAM: CT ANGIO HEAD HISTORY: left hemiparesis, left-sided neglect COMPARISON: CT angiography of the neck and CT of the head from the same date. TECHNIQUE: Contiguous axial images were obtained. Additional sagittal and coronal reformatted images were obtained. Administration of IV contrast given per institution protocol. Images submitted for interpretation. FINDINGS: There is occlusion of the petrous and cavernous portion right internal carotid artery. There is reconstitution of the distal supraclinoid right internal carotid artery is cr oss-filling from the left anterior circulation through the anterior communicating artery. There is opacification of the proximal right middle cerebral artery. Decreased branching of the right middle cerebral arterial branches involving the proximal M2 through M4 segments. There is some opacificat ion of distal arterial branches. Jennings appearance of the right cerebral hemisphere parenchyma in the right MCA distribution concerning for watershed infarct related to hypoperfusion. Symmetric opacification of the anterior cerebral arteries. Normal opacification of branching of the left middle cerebral artery and bilateral posterior cerebral arteries. Right posterior communicating artery is present. There may be some retrograde flow within the right posterior communicating artery also contributing to opacification right middle cerebral artery proximally. Tiny left posterior communicating artery is also present. Intracranial portions the vertebral arteries and basilar artery are widely patent. Single bilateral superior cerebellar arteries. No early draining vein. No area of abnormal hypervascular enhancement. Gross normal opacification major dural venous sinuses. IMPRESSION: There is occlusion of the right internal carotid artery. There is reconstitution of the distal right intracranial supraclinoid segment. This is severe cross-filling from the left anterior circulation through the anterior communicating artery. There is good opacification of the M1 segment of the right middle cerebral artery with decreased branching of the M2 through M4 segments. Trace flow is identified within the distal segmental branches. New from earlier noncontrast head CT, there appears to be a bland appearance of the brain parenchyma within the right MCA distribution concerning for right MCA watershed infarct related to hypoperfusion. Findings discussed with Dr. Narayanan On August 25, 2018 at 2345 hours EST. Transcribed By: LMA Dictated By: MARLENE GILLIS MD Electronically Authenticated By: MARLENE GILLIS MD Signed Date/Time: 08/25/182347 DD/ 50 TD/TT: 12/22/18 2351 - Differential Diagnosis CVA Critical Care Time: Yes Critical care time in (mins) excluding proc time.: 50 Critical care attestation.: If time is entered above; I have spent that time in minutes in the direct care of this critically ill patient, excluding procedure time. ED Disposition Clinical Impression: CVA (cerebral vascular accident), Thrombosis of right internal carotid artery Disposition: OP ADMIT IP TO THIS HOSP Is pt being admited?: No Does the pt Need Aspirin: No Condition: Serious Referrals: PRIMARY CARE, [Primary Care Provider] - 3-5 Days Time of Disposition: 00:28 (awaiting transport)
[2018-08-25] MEDS ORDERED: ACTIVASE ONE (22:12)
[2018-08-25] MEDS ORDERED: NACL 0.9% 100 ML ONE (22:23)
[2018-08-25] MEDS ORDERED: ACTIVASE IV ONE ×2 (22:24)
[2018-08-25] MEDS ORDERED: NACL 0.9% IV ONE (22:24)
[2018-08-25 22:27] LABS: BUN/Creatinine Ratio 20; Blood Urea Nitrogen 22 mg/dL (7-17); Calcium 8.7 mg/dL (8.4-10.2); Hemolysis Index 4
[2018-08-25 22:29] LABS: INR 1.07 (0.87-1.13)
[2018-08-25 22:30] LABS: Partial Thromboplastin Time 24.3 Sec. (24.2-36.6)
[2018-08-25 22:31] LABS: Basophils % (Auto) 0.6 % (0.0-1.8); Eosinophils # (Auto) 0.1 K/mm3 (0.0-0.4); Hematocrit 36.3 % (30.3-42.9); Hemoglobin 11.7 gm/dl (10.1-14.3); Lymphocytes # (Auto) 2.1 K/mm3 (1.2-5.4); Lymphocytes % (Auto) 29.9 % (13.4-35.0); Mean Corpuscular HGB Conc 32 % (30-34); Mean Corpuscular Hemoglobin 30 pg (28-32); Mean Corpuscular Volume 93 fl (79-97); Monocytes # (Auto) 0.7 K/mm3 (0.0-0.8); Monocytes % (Auto) 10.2 % (0.0-7.3); Platelet Count 224 K/mm3 (140-440); Red Blood Count 3.92 M/mm3 (3.65-5.03); Red Cell Distribution Width 15.9 % (13.2-15.2)
--- NOTE | 2018-08-25 23:40 | Cat Scan Report ---
FINAL REPORT EXAM: CT ANGIO NECK HISTORY: left hemiparesis, left-sided neglect COMPARISON: None available. TECHNIQUE: Contiguous axial images were obtained. Additional sagittal and coronal reformatted images were obtained. Administration of IV contrast given per institution protocol. Images submitted for in terpretation. Max intensity projection images. FINDINGS: There occlusion right internal carotid artery at the bifurcation. Extracranial portions of the bilate ral common carotid arteries are widely patent. Left carotid bifurcation is widely patent. Extracrania l portion left internal carotid artery is widely patent as well as the vertebral arteries. Right vert ebral artery is slightly dominant. Conventional arch anatomy with separate origins of the innominate left common carotid arteries. Septal thickening at the lung apices and partial visualization of bilateral pleural effusions concern ing for mild CHF. Spaces of the neck are preserved. Upper airway is patent. IMPRESSION: Occlusion right internal carotid artery at its origin. No calcified plaque in this region. This appea rs relate to acute thrombus. Dissection is not excluded.
--- NOTE | 2018-08-25 23:48 | Cat Scan Report ---
FINAL REPORT EXAM: CT ANGIO HEAD HISTORY: left hemiparesis, left-sided neglect COMPARISON: CT angiography of the neck and CT of the head from the same date. TECHNIQUE: Contiguous axial images were obtained. Additional sagittal and coronal reformatted images were obtained. Administration of IV contrast given per institution protocol. Images submitted for in terpretation. FINDINGS: There is occlusion of the petrous and cavernous portion right internal carotid artery. There is recon stitution of the distal supraclinoid right internal carotid artery is cross-filling from the left ant erior circulation through the anterior communicating artery. There is opacification of the proximal r ight middle cerebral artery. Decreased branching of the right middle cerebral arterial branches invol ving the proximal M2 through M4 segments. There is some opacification of distal arterial branches. Bl and appearance of the right cerebral hemisphere parenchyma in the right MCA distribution concerning f or watershed infarct related to hypoperfusion. Symmetric opacification of the anterior cerebral arteries. Normal opacification of branching of the l eft middle cerebral artery and bilateral posterior cerebral arteries. Right posterior communicating a rtery is present. There may be some retrograde flow within the right posterior communicating artery a lso contributing to opacification right middle cerebral artery proximally. Tiny left posterior commun icating artery is also present. Intracranial portions the vertebral arteries and basilar artery are widely patent. Single bilateral s uperior cerebellar arteries. No early draining vein. No area of abnormal hypervascular enhancement. Gross normal opacification paulina or dural venous sinuses. IMPRESSION: There is occlusion of the right internal carotid artery. There is reconstitution of the distal right intracranial supraclinoid segment. This is severe cross-filling from the left anterior circulation th rough the anterior communicating artery. There is good opacification of the M1 segment of the right middle cerebral artery with decreased bran kahlil of the M2 through M4 segments. Trace flow is identified within the distal segmental branches. New from earlier noncontrast head CT, there appears to be a bland appearance of the brain parenchyma within the right MCA distribution concerning for right MCA watershed infarct related to hypoperfusion . Findings discussed with Dr. Levy On August 25, 2018 at 2345 hours EST.
[2018-08-26 01:02] VITALS: BP 145/73
== END 2018-08-26 01:12 | disposition other institution (70) ==
LOC: ED 21:37
DX: I62.9 Nontraumatic intracranial hemorrhage, unspecified (principal); I65.21 Occlusion and stenosis of right carotid artery; I10 Essential (primary) hypertension; M19.90 Unspecified osteoarthritis, unspecified site; E03.9 Hypothyroidism, unspecified; Z98.51 Tubal ligation status
CPT/HCPCS: 36415; 37212; 70450; 70496; 70498; 80048; 84484; 85025; 85610; 85670; 85730; 93005; 93010; 96374; 99291; J2997; Q9967; 96376

== ENCOUNTER 2020-02-13 13:48 | Emergency (ER) | payer SELFPAY ==
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
[2020-02-13 15:57] LABS: Basophils % (Auto) 0.5 % (0.0-1.8); Eosinophils % (Auto) 0.2 % (0.0-4.3); Hemoglobin 12.4 gm/dl (10.1-14.3); Lymphocytes # (Auto) 1.1 K/mm3 (1.2-5.4); Lymphocytes % (Auto) 20.9 % (13.4-35.0); Mean Corpuscular HGB Conc 33 % (30-34); Mean Corpuscular Volume 92 fl (79-97); Monocytes # (Auto) 0.4 K/mm3 (0.0-0.8); Monocytes % (Auto) 6.8 % (0.0-7.3); Platelet Count 206 K/mm3 (140-440); Red Blood Count 4.15 M/mm3 (3.65-5.03); Red Cell Distribution Width 15.5 % (13.2-15.2)
[2020-02-13 16:16] LABS: Alanine Aminotransferase 10 units/L (7-56); Albumin 4.1 g/dL (3.9-5); BUN/Creatinine Ratio 27; Blood Urea Nitrogen 24 mg/dL (7-17); Calcium 9.7 mg/dL (8.4-10.2); Hemolysis Index 1
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
[2020-02-13 17:10] VITALS: BP 136/72
== END 2020-02-13 17:09 | disposition home or self-care (01) ==
LOC: ED 13:48
DX: R10.9 Unspecified abdominal pain (principal); Z79.899 Other long term (current) drug therapy; V09.9XXA Pedestrian injured in unspecified transport accident, initial encounter; Y93.89 Activity, other specified; Y99.8 Other external cause status; Y92.410 Unspecified street and highway as the place of occurrence of the external cause
CPT/HCPCS: 36415; 80053; 83690; 85025; 99283